=== PATIENT | female | born 1990 ===

== ENCOUNTER 2022-08-20 18:28 | Inpatient (IN) | payer BC, OTHER, SELFPAY ==
[2022-08-20 20:29] VITALS: BMI 36.6
[2022-08-20] MEDS ORDERED: Acetaminophen 325 MG TAB PO PRN (20:53)
[2022-08-20] MEDS ORDERED: Ondansetron PF 4 MG/2 ML Vial IVP SCH (22:00)
[2022-08-20] MEDS ORDERED: Morphine 4 MG/ML VIAL SLOW IVP SCH (22:00)
[2022-08-20] MEDS: Sodium Chloride 0.9% 1,000 ML IV SCH (22:01)
[2022-08-20] MEDS: HYDROcodone/Acetaminophen 5/325 mg Tablet PO PRN (22:09)
[2022-08-20] MEDS: Piperacillin/Tazobactam 3.375 GM in Sodium Chloride 0.9% 100 ML IVPB SCH (22:14)
[2022-08-21] MEDS ORDERED: Morphine 4 MG/ML VIAL SLOW IVP SCH (00:15)
[2022-08-21] MEDS: Ondansetron PF 4 MG/2 ML Vial IVP PRN ×2 (04:17→09:02)
[2022-08-21] MEDS: Piperacillin/Tazobactam 3.375 GM in Sodium Chloride 0.9% 100 ML IVPB SCH ×3 (05:08→21:18)
[2022-08-21] MEDS: Morphine 4 MG/ML VIAL SLOW IVP PRN ×2 (05:08→09:01)
[2022-08-21] MEDS: HYDROcodone/Acetaminophen 5/325 mg Tablet PO PRN (05:53)
[2022-08-21 08:25] LABS: #Monocytes 1.2 thou/uL (0.11-0.59); #Neutrophils 10.3 thou/uL (1.40-6.50); %Eosinophils 0.3 % (0.0-10.0); %Monocytes 9.4 % (0.0-10.0); %Neutrophils 82.3 % (42.0-75.0); Hemoglobin 13.9 g/dL (12.0-16.0); Mean Corpuscular HGB CONC 32.4 g/dL (32.0-36.0); Mean Corpuscular Hemoglobin 30.6 pg (27.0-31.0); Mean Corpuscular Volume 94.5 fl (78.0-98.0); Mean Platelet Volume 9.9 fL (7.4-10.4); Platelet Count 184 10x3/uL (130-400); RBC Distribution Width 12.1 % (11.5-14.5); Red Blood Cell (RBC) Count 4.54 mill/uL (4.20-5.40); White Blood Cell (WBC) Count 12.5 10x3/uL (4.8-10.8)
[2022-08-21 08:31] LABS: ALT (SGPT) 384 U/L (8-55); AST (SGOT) 385 U/L (5-34); Albumin 3.9 g/dL (3.5-5.0); Alkaline Phosphatase 222 U/L (40-110); Anion Gap 15 mmol/L (10-20); BUN (Urea Nitrogen) 5 mg/dL (7.0-18.7); Bilirubin, Total 5.2 mg/dL (0.2-1.2); Calc. Creatinine Clearance 235 mL/min (70-130); Calcium 8.9 mg/dL (7.8-10.44); Carbon Dioxide 20 mmol/L (22-29); Chloride 105 mmol/L (98-107); Estimated GFR 122; Globulin 3.3 g/dL (2.4-3.5); Glucose 97 mg/dL (70-105); Lipase 662 U/L (8-78); Potassium 4.2 mmol/L (3.5-5.1); Protein, Total 7.2 g/dL (6.0-8.3); Sodium 136 mmol/L (136-145)
[2022-08-21 08:51] LABS: HBCM Index 0.08 S/CO (0-0.79); HBSAg Index 0.28 S/CO (0-0.99); Hep A IgM AB Non-Reactive (NonReactive); Hep A IgM S/CO 0.14 S/CO (0-0.79); Hep B Surf Ag Non-Reactive S/CO (NonReactive); Hep C IgG Ab Non-Reactive (NonReactive); Hepatitis B Core IgM Abs Non-Reactive (NonReactive)
[2022-08-21] MEDS ORDERED: Gabapentin 100 MG CAP PO SCH (10:00)
[2022-08-21] MEDS ORDERED: traMADol HCl 50 MG TAB PO SCH ×2 (10:00→12:00)
[2022-08-21] MEDS ORDERED: HYDROmorphone 0.5 MG/0.5 ML SYRINGE SLOW IVP SCH (10:00)
[2022-08-21] MEDS ORDERED: Iopamidol 30 ML ONE (10:29)
[2022-08-21] MEDS ORDERED: Indomethacin 50 MG SUPP ONE (10:30)
[2022-08-21] MEDS ORDERED: Famotidine/PF 20 mg/2ml Vial ONE (10:50)
[2022-08-21] MEDS ORDERED: Fentanyl 250 MCG/5 ML VIAL ONE (10:50)
[2022-08-21] MEDS ORDERED: SUGAMMADEX SODIUM 200 MG/2 ML VIAL ONE (10:51)
[2022-08-21] MEDS ORDERED: Bupivacaine/Epinephrine 0.25% 30 ML VIAL ONE (10:56)
[2022-08-21] MEDS ORDERED: PROPOFOL 200 MG/20 ML VIAL ONE (11:02)
[2022-08-21] MEDS ORDERED: Rocuronium Bromide 10 MG/ML (10ML VIAL) ONE ×2 (11:02→12:10)
[2022-08-21] MEDS ORDERED: Lidocaine 1% PF 5 ML VIAL ONE (11:02)
[2022-08-21] MEDS ORDERED: Dexamethasone 20 MG/5 ML VIAL ONE (11:02)
[2022-08-21] MEDS ORDERED: Metoclopramide HCl 10 MG/2 ML VIAL ONE (11:02)
[2022-08-21] MEDS ORDERED: Ketorolac Tromethamine 30 MG/ML VIAL ONE (12:10)
[2022-08-21] MEDS ORDERED: Ondansetron PF 4 MG/2 ML Vial ONE ×2 (12:10→14:33)
[2022-08-21] MEDS ORDERED: HYDROmorphone 2 MG/ML VIAL ONE (13:35)
[2022-08-21] MEDS ORDERED: traMADol HCl 50 MG TAB PO PRN (13:56)
[2022-08-21] MEDS ORDERED: Promethazine HCl 25 MG/ML VIAL IM PRN (13:59)
[2022-08-21] MEDS ORDERED: HYDROmorphone 2 MG/ML VIAL SLOW IVP PRN (13:59)
[2022-08-21] MEDS ORDERED: Promethazine HCl 25 MG/ML VIAL IVPB PRN (13:59)
[2022-08-21] MEDS: Sodium Chloride 0.9% 1,000 ML IV SCH ×2 (17:46→18:43)
[2022-08-21] MEDS: Ketorolac Tromethamine 30 MG/ML VIAL IVP SCH ×3 (17:46→18:42)
[2022-08-21] MEDS: traMADol HCl 50 MG TAB PO SCH (17:55)
[2022-08-22] MEDS: Ketorolac Tromethamine 30 MG/ML VIAL IVP SCH ×2 (00:01→05:29)
[2022-08-22] MEDS: traMADol HCl 50 MG TAB PO SCH ×3 (00:01→12:30)
[2022-08-22] MEDS: Sodium Chloride 0.9% 1,000 ML IV SCH (02:55)
[2022-08-22] MEDS: Piperacillin/Tazobactam 3.375 GM in Sodium Chloride 0.9% 100 ML IVPB SCH (05:29)
[2022-08-22 05:36] LABS: #Lymphocytes 1.6 thou/uL (1.20-3.40); #Monocytes 0.5 thou/uL (0.11-0.59); %Eosinophils 0.5 % (0.0-10.0); %Lymphocytes 22.2 % (21.0-51.0); %Monocytes 7.6 % (0.0-10.0); %Neutrophils 69.8 % (42.0-75.0); Hemoglobin 11.4 g/dL (12.0-16.0); Mean Corpuscular HGB CONC 33.6 g/dL (32.0-36.0); Mean Corpuscular Hemoglobin 31.6 pg (27.0-31.0); Mean Corpuscular Volume 94.1 fl (78.0-98.0); Mean Platelet Volume 8.4 fL (7.4-10.4); Platelet Count 186 10x3/uL (130-400); Red Blood Cell (RBC) Count 3.61 mill/uL (4.20-5.40); White Blood Cell (WBC) Count 7.2 10x3/uL (4.8-10.8)
[2022-08-22 06:13] LABS: Anion Gap 12 mmol/L (10-20); BUN (Urea Nitrogen) 7 mg/dL (7.0-18.7); Calc. Creatinine Clearance 221 mL/min (70-130); Calcium 8.5 mg/dL (7.8-10.44); Carbon Dioxide 24 mmol/L (22-29); Chloride 108 mmol/L (98-107); Estimated GFR 120; Glucose 97 mg/dL (70-105); Lipase 54 U/L (8-78); Magnesium 2.4 mg/dL (1.6-2.6); Phosphorus 2.2 mg/dL (2.3-4.7); Potassium 4.4 mmol/L (3.5-5.1); Sodium 140 mmol/L (136-145)
[2022-08-22 06:14] LABS: ALT (SGPT) 275 U/L (8-55); AST (SGOT) 171 U/L (5-34); Albumin 3.4 g/dL (3.5-5.0); Alkaline Phosphatase 184 U/L (40-110); Bilirubin, Direct 2.1 mg/dL (0.1-0.3); Bilirubin, Total 3.7 mg/dL (0.2-1.2); Protein, Total 6.3 g/dL (6.0-8.3)
[2022-08-22] MEDS ORDERED: Gabapentin 100 MG CAP PO SCH (09:00)
[2022-08-22 10:59] VITALS: BP 131/85; TEMP 97.7
== END 2022-08-22 13:00 | disposition home or self-care (01) | DRG 417 ==
LOC: SURG A 19:47 → OBSVTOIN 22:49
PROVIDERS: ADMIT Hospitalist; ATTEND Internal Medicine
PROC: 0FC98ZZ Extirpation of Matter from Common Bile Duct, Via Natural or Artificial Opening Endoscopic (ICD-10-PCS; principal; 2022-08-21)
PROC: 0FT44ZZ Resection of Gallbladder, Percutaneous Endoscopic Approach (ICD-10-PCS; 2022-08-21)
PROC: BF111ZZ Fluoroscopy of Biliary and Pancreatic Ducts using Low Osmolar Contrast (ICD-10-PCS; 2022-08-21)
DX: K80.43 Calculus of bile duct with acute cholecystitis with obstruction (principal); K85.10 Biliary acute pancreatitis without necrosis or infection; J45.909 Unspecified asthma, uncomplicated; E28.2 Polycystic ovarian syndrome; R74.01 Elevation of levels of liver transaminase levels; E66.9 Obesity, unspecified; R79.89 Other specified abnormal findings of blood chemistry; Z90.49 Acquired absence of other specified parts of digestive tract; Z88.8 Allergy status to other drugs, medicaments and biological substances; Z82.49 Family history of ischemic heart disease and other diseases of the circulatory system; Z68.36 Body mass index [BMI] 36.0-36.9, adult; Z80.8 Family history of malignant neoplasm of other organs or systems
CPT/HCPCS: 36415; 74330; 80048; 80053; 80074; 80076; 83690; 83735; 84100; 85025; 88304; C1889; J1100; J1170; J1610; J1885; J2270; J2405; J2543; J2704; J2765; J3010; J3490; J7050; Q9967; S0028